=== PATIENT | female | born 1990 | race Caucasian/White ===

== ENCOUNTER 2017-06-19 07:08 | Emergency (ER) | payer BC, OTHER ==
--- NOTE | 2017-06-19 07:15 | EDM.PDOC ---
ED HPI GENERAL MEDICAL PROBLEM - General Chief Complaint: Genitourinary Problem Stated Complaint: URNURA AYALA INFECTION [id number] Time Seen by Provider: 06/19/17 07:10 Source of Information: Reports: Patient, RN, RN Notes Reviewed History Limitations: Reports: No Limitations - History of Present Illness INITIAL COMMENTS - FREE TEXT/NARRATIVE: C/O feeling like she has a "UTI". Reports pain and burning with urination. Admits to chills. Denies fever. Onset: Gradual Duration: Day(s): (1) Quality: Reports: Burning Severity: Severe Improves with: Reports: None Worsens with: Reports: Other (urination) Associated Symptoms: Reports: No Other Symptoms - Related Data Allergies Allergy/AdvReac Type Severity Reaction Status Date / Time No Known Allergies Allergy Verified 06/19/17 07:15 Home Meds: Home Meds Cetirizine [ZyrTEC] 10 mg PO DAILY 06/19/17 [History] PNV95/Ferrous Fumarate/FA [ Tablet] 1 tab PO DAILY 06/19/17 [History] Past Medical History - Past Health History Medical/Surgical History: Denies Medical/Surgical History Social & Family History - Family History Family Medical History: Noncontributory - Living Situation & Occupation Living situation: Reports: with Family ED ROS GENERAL - Review of Systems Review Of Systems: ROS reveals no pertinent complaints other than HPI. ED EXAM, RENAL/ - Physical Exam Exam: See Below Exam Limited By: No Limitations General Appearance: Alert, WD/WN, No Apparent Distress Head: Atraumatic, Normocephalic Respiratory/Chest: No Respiratory Distress, Normal Breath Sounds Cardiovascular: Regular Rate, Rhythm GI/Abdominal: Normal Bowel Sounds, Soft, No Distention, Tender (mild suprapubic) (Female) Exam: Deferred Rectal (Female) Exam: Deferred Back Exam: Normal Inspection, Full Range of Motion. No: CVA Tenderness (L), CVA Tenderness (R) Neurological: Alert, Oriented, No Motor/Sensory Deficits Psychiatric: Normal Mood Skin Exam: Warm Course - Vital Signs Last Recorded V/S: Last Vital Signs Temp 36.4 C 06/19/17 07:17 Pulse 101 H 06/19/17 07:17 Resp 16 06/19/17 07:17 BP 125/76 06/19/17 07:17 Pulse Ox 99 06/19/17 07:17 - Orders/Labs/Meds Orders: Active Orders 24 hr Category Date Time Status CHLAMYDIA TRACHOMATIS/GC AMPLF Routine Lab 06/19/17 07:46 Ordered CULTURE URINE [RM] Stat Lab 06/19/17 07:46 Ordered Cephalexin [Keflex] Med 06/19/17 07:48 Once 500 mg PO ONETIME ONE metroNIDAZOLE Med 06/19/17 07:48 Once 500 mg PO ONETIME ONE Labs: Laboratory Tests 06/19/17 06/19/17 06/19/17 Range/Units 07:11 07:11 07:11 Urine Color Yellow (YELLOW) Urine Appearance Cloudy (CLEAR) Urine pH 5.5 (5.0-9.0) Ur Specific [place] 1.020 (1.005-1.030) Urine Protein 30 H (NEGATIVE) Urine Glucose (UA) Negative (NEGATIVE) Urine Ketones Negative (NEGATIVE) Urine Occult Blood Large H (NEGATIVE) Urine Nitrite Negative (NEGATIVE) Urine Bilirubin Negative (NEGATIVE) Urine Urobilinogen 0.2 (0.2-1.0) mg/dL Ur Leukocyte Esterase Trace H (NEGATIVE) Urine RBC >100 H /HPF Urine WBC 5-10 H (0-5/HPF) /HPF Ur Epithelial Cells Moderate H /HPF Amorphous Sediment Rare (0/HPF) /HPF Urine Bacteria Moderate H (0-FEW/HPF) /HPF Urine Mucus Rare /LPF Urine Other Urine HCG, Qual Negative Urine Opiates Screen Negative (NEGATIVE) Ur Oxycodone Screen Negative (NEGATIVE) Urine Methadone Screen Negative (NEGATIVE) Ur Barbiturates Screen Negative (NEGATIVE) U Tricyclic Antidepress Negative (NEGATIVE) Ur Phencyclidine Scrn Negative (NEGATIVE) Ur Amphetamine Screen Negative (NEGATIVE) U Methamphetamines Scrn Negative (NEGATIVE) Urine MDMA Screen Negative (NEGATIVE) U Benzodiazepines Scrn Negative (NEGATIVE) Urine Cocaine Screen Negative (NEGATIVE) U Marijuana (THC) Screen Negative (NEGATIVE) Departure - Departure Time of Disposition: 07:49 Disposition: Home, Self-Care 01 Condition: Good Clinical Impression: Bacterial vaginosis UTI (urinary tract infection) Qualifiers: Urinary tract infection type: acute cystitis Hematuria presence: with hematuria Qualified Code(s): N30.01 - Acute cystitis with hematuria - Discharge Information Instructions: Urinary Tract Infection, Adult, [id number], Bacterial Vaginosis Forms: ED Department Discharge Additional Instructions: Rx: Cephalexin 500mg Rx: Flagyl 500mg Follow up in clinic in 7 to 10 days. - My Orders Last 24 Hours: My Active Orders 06/19/17 07:46 CHLAMYDIA TRACHOMATIS/GC AMPLF Routine CULTURE URINE [RM] Stat 06/19/17 07:48 Cephalexin [Keflex] 500 mg PO ONETIME ONE metroNIDAZOLE 500 mg PO ONETIME ONE - Assessment/Plan Last 24 Hours: My Active Orders 06/19/17 07:46 CHLAMYDIA TRACHOMATIS/GC AMPLF Routine CULTURE URINE [RM] Stat 06/19/17 07:48 Cephalexin [Keflex] 500 mg PO ONETIME ONE metroNIDAZOLE 500 mg PO ONETIME ONE
[2017-06-19 07:19] VITALS: BP 125/76
[2017-06-19] MEDS ORDERED: metroNIDAZOLE 250 MG Tab PO ONE (07:48)
[2017-06-19] MEDS ORDERED: Cephalexin 500 MG Cap PO ONE (07:48)
== END 2017-06-19 08:12 | disposition home or self-care (01) ==
LOC: DL.ED 07:08
DX: N30.01 Acute cystitis with hematuria (principal); N76.0 Acute vaginitis; Z79.899 Other long term (current) drug therapy
CPT/HCPCS: 80305; 81001; 81025; 87086; 87491; 87591; 99283; A9270